=== PATIENT | male | born 1940 | race Caucasian/White ===

== ENCOUNTER 2020-04-28 12:04 | Outpatient (REF) | payer MEDICARE, OTHER, SELFPAY ==
--- NOTE | 2020-04-28 12:38 | XR_ITS ---
EXAMINATION: XR CHEST CLINICAL INFORMATION: COPD COMPARISON: Previous chest x-ray most recent December 03 TECHNIQUE: 2 views of the chest were obtained. FINDINGS: The cardiac and mediastinal contours are stable. The lungs are well-inflated. There is increased retrosternal airspace, flattening of the diaphragms and increased AP dimension of the trachea. Findings are compatible with COPD. The lungs are clear. There is no pleural effusion or pneumothorax. There old bilateral rib fractures. There are degenerative changes of the spine. XR/XR chest 2V IMPRESSION: COPD. No evidence for acute disease in the chest.
[2020-04-28 12:52] LABS: MANUAL DIFF FLAG NO
[2020-04-28 13:03] LABS: Basophils Percent Auto 0.6 % (0-2); Eosinophils Absolute Auto 0.1 X10*3/uL (0.0-0.4); Eosinophils Percent Auto 2.2 % (0-4); Hematocrit 38.1 % (42-52); Hemoglobin 12.3 g/dl (14.0-18.0); Imm Gran Abs Auto 0.02 X10*3/uL (0.00-0.03); Imm Gran Pct Auto 0.4 % (0.0-0.4); Immature Retic Fraction 14.3 % (2.3-13.4); Lymphocytes Absolute Auto 1.3 X10*3/uL (1.2-4.9); Lymphocytes Percent Auto 23.4 % (20-40); Mean Corpuscular HGB Conc 32.3 g/dl (31.0-36.0); Mean Corpuscular Hemoglobin 32.9 pg (27.0-33.0); Mean Corpuscular Volume 101.9 fL (80-98); Mean Platelet Volume 10.4 fL (9.4-12.4); Monocytes Absolute Auto 0.5 X10*3/uL (0.1-1.2); Monocytes Percent Auto 8.4 % (2-11); Neutrophils Absolute Auto 3.5 X10*3/uL (2.0-8.3); Platelet Count 268 X10*3/uL (160-400); Red Blood Count 3.74 X10*6/uL (4.60-5.80); Retic HGB Equivalent 33.4 pg (30.0-35.0); Reticulocyte Percent 2.3 % (0.5-1.8); Reticulocytes Absolute 0.086 X10*6/uL (0.026-0.095); White Blood Count 5.4 X10*3/uL (4.8-10.8)
[2020-04-28 13:09] LABS: Alanine Aminotransferase 17 U/L (0-40); Albumin Level 3.8 g/dL (3.5-5.0); Alkaline Phosphatase 132 U/L (39-117); Anion Gap 13 (12-20); Aspartate Amino Transferase 27 U/L (5-37); Bilirubin Total 0.2 mg/dL (0.0-1.0); Blood Urea Nitrogen 21 mg/dL (9-16); Carbon Dioxide 31 mmol/L (22-29); Chloride 100 mmol/L (96-108); Estimated Glomerular Filt Rate > 60; Glucose Random 87 mg/dL (60-115); Iron 105 mcg/dL (45-160); Percent Iron Saturation 34 % (15-50); Potassium 4.7 mmol/l (3.3-5.1); Sodium 139 mmol/L (135-145); Total Iron Binding Capacity 313 mcg/dL (228-428); Total Protein 7.2 g/dL (6.5-8.0); Unsaturated Iron Binding 208 ug/dL
[2020-04-28 13:25] LABS: Ferritin 94 ng/mL (20-250); Free T4 (Free Thyroxine) 1.03 ng/dL (0.71-1.85); Thyroid Stimulating Hormone 3.41 uIU/mL (0.32-4.0)
[2020-04-28 13:39] LABS: Folate 7.8 ng/mL (> or = 4.0); Vitamin B12 219 pg/mL (200-900)
== END 2020-04-28 12:05 | disposition home or self-care (01) ==
LOC: HO.LAB 12:04
PROVIDERS: PCP Internal Medicine; Visit Provider Internal Medicine
DX: E78.00 Pure hypercholesterolemia, unspecified (principal); J44.9 Chronic obstructive pulmonary disease, unspecified; I10 Essential (primary) hypertension; G25.0 Essential tremor; L30.9 Dermatitis, unspecified; B35.3 Tinea pedis; Z72.0 Tobacco use; Z20.822 Contact with and (suspected) exposure to COVID-19
CPT/HCPCS: 36415; 71046; 80053; 82607; 82728; 82746; 83540; 84439; 84443; 85025; 85045; U0003

== ENCOUNTER 2020-04-29 15:02 | Outpatient (REF) | payer MEDICARE, SELFPAY ==
[2020-04-29 15:19] LABS: Glucose Urine UA NEG (NEG); Leukocyte Esterase Urine NEG (NEG); Nitrite Urine NEG (NEG); Specific Gravity - Urine 1.025 (1.005-1.025); Urine Blood NEG (NEG); Urine Ketones NEG (NEG); Urine Protein 1+ MG/DL (NEG-TRACE)
[2020-04-29 15:23] LABS: Appearance Urine HAZY; Color Urine DARK YELLOW
[2020-04-29 16:37] LABS: Bacteria Urine 3+ /LPF; Granular Casts Urine 0-2 /LPF; RBC Urine 0-2 /HPF (0); WBC Urine 0 /HPF (0-4)
[2020-04-29 16:38] LABS: Hyaline Casts Urine 0-2 /LPF
== END 2020-04-29 15:03 | disposition home or self-care (01) ==
LOC: HO.LNP 15:02
PROVIDERS: Visit Provider Internal Medicine
DX: I10 Essential (primary) hypertension (principal)
CPT/HCPCS: 81001

== ENCOUNTER 2020-05-27 16:15 | Emergency (ER) | payer MEDICARE, SELFPAY ==
--- NOTE | ~2020-05-27 | CT_ITS ---
EXAMINATION: CT OF THE HEAD AND CERVICAL SPINE WITHOUT CONTRAST CLINICAL INFORMATION: Fall COMPARISON: 12/29/2017 TECHNIQUE: Contiguous axial imaging was performed from the vertex to the thoracic inlet, through the head and cervical spine, without intravenous administration of contrast. Coronal and sagittal reformatted images through the cervical spine were obtained on the technologists workstation. Total exam dose-length product: 350+794 mGy-cm This CT examination was performed using dose optimization techniques as appropriate, variously including the following: *Automated exposure control *Adjustment of mA and/or kV according to patient size (this includes techniques or standardized protocols for targeted exams where dose is matched to indication/reason for exam; i.e. extremities or head) *Use of iterative reconstruction technique FINDINGS: Head: No acute intracranial hemorrhage. No extra-axial fluid collection. Hernandez-white matter differentiation is preserved without evidence of acute large vessel territory ischemia. Again seen are prominent extra-axial CSF spaces, right greater than left. There may be a chronic right-sided low density hygroma. No local mass effect or sulcal effacement. The ventricular system is similar in appearance to the prior study. No mass effect or midline shift. Again seen is patchy periventricular and subcortical white matter hypodensity consistent with chronic microvascular white matter ischemic changes. No skull fracture seen. There is new soft tissue thickening of the forehead, right greater than left extending to the right periorbital soft tissues. Right ethmoid sinus mucosal thickening. There is diffuse opacification of the left mastoid air cells with erosion of the cortex anteriorly consistent with mastoiditis. There is abnormal soft tissue in the left middle ear. Cervical spine: Exaggerated cervical lordosis. Grade 1 anterolisthesis of C4 on C5. Multilevel degenerative disc disease. No acute or suspicious osseous abnormality. Multilevel degenerative changes. Multilevel facet arthropathy. Severe biapical pleural-parenchymal scarring and emphysema. No cervical lymphadenopathy, mass, or fluid collection. CT/CT cervical spine wo con IMPRESSION: No acute intracranial abnormality. Again seen are right greater than left prominent extra-axial CSF spaces; there may be a chronic low density subdural hygroma on the right. There is new soft tissue thickening of the forehead extending to the right periorbital soft tissues. Recommend correlation with physical exam. There is new/worsened diffuse opacification of the left mastoid air cells with erosion of the cortex anteriorly consistent with mastoiditis. Also seen is abnormal soft tissue in the left middle ear. Extensive multilevel degenerative changes of the cervical spine but no acute osseous abnormality seen.
--- NOTE | ~2020-05-27 | CT_ITS ---
EXAMINATION: CT CHEST, ABDOMEN AND PELVIS WITH CONTRAST CLINICAL INFORMATION: Fall. Abdominal and chest pain. COMPARISON: CT chest, abdomen and pelvis 01/12/2018. TECHNIQUE: Multidetector volumetric imaging was performed from the thoracic inlet through the pubic symphysis following administration of 100 mL Omnipaque 350. Sagittal and coronal reformatted images were obtained on the technologist's workstation. This CT examination was performed using dose optimization techniques as appropriate, variously including the following: *Automated exposure control. *Adjustment of mA and/or kV according to patient size (this includes techniques or standardized protocols for targeted exams where dose is matched to indication/reason for exam; i.e. extremities or head). *Use of iterative reconstruction technique. DLP: 2141 mGy-cm FINDINGS: CHEST: Lung: Severe underlying COPD is present with bullae present throughout the lungs. Calcified granulomas are present in the right upper lobe as well as in the posterior costophrenic sulcus in the left lower lobe. No suspicious lung masses seen. Mediastinum: The mediastinum is unremarkable. The central vascular structures are unremarkable aside from mild calcific plaque in the aorta and coronary artery calcifications. No hilar or mediastinal lymphadenopathy. Pericardium/Pleura: No significant effusion. No pleural mass or thickening. Chest Wall/Axilla: There is an old fracture involving the 11th rib on the right with non-union. The fracture appeared to be acute on 01/12/2018. ABDOMEN/PELVIS: Peritoneal Space: No significant free air or free fluid identified. Liver, Gallbladder, Biliary Tree: The liver is normal in size, shape, and attenuation. No focal hepatic lesion or biliary ductal dilatation is present. The gallbladder is unremarkable with no evidence of radiopaque gallstones, gallbladder wall thickening, or obvious pericholecystic inflammatory changes. Pancreas: Calcifications are present in the pancreas suggesting chronic pancreatitis, unchanged. Spleen: Unremarkable. Adrenal Glands: Unremarkable. Kidneys and Ureters: The kidneys are normal in size, shape, and attenuation. Bilateral renal cysts are again noted. No hydronephrosis, hydroureter, or calculi seen. No perinephric stranding. Bladder: Unremarkable. Gastrointestinal Tract: A large amount of stool is present throughout the colon but there is no evidence of bowel obstruction. There is some minimally prominent small bowel loops in the pelvis with a maximum diameter of 2.5 cm. Few scattered colonic diverticula are seen. The small and large bowel are otherwise unremarkable. The appendix is not identified but there is no evidence to suggest appendicitis. Abdominal Wall: No significant hernia is appreciated. Lymph Nodes: No retroperitoneal lymphadenopathy is seen. Vascular: There has been a dramatic increase in size of infrarenal abdominal aortic aneurysm that previously measured 3.7 x 3.0 cm and now measures 6.0 x 6.1 cm (series 27 image 35). The aneurysm contains considerable thrombus. The aneurysm ends at the aortic bifurcation but there is associated aneurysmal dilatation of the left common iliac artery with maximal dimension of 2.7 cm, previously 2.2 cm. Severe calcific atherosclerotic changes present in the iliofemoral vessels. The IVC appears unremarkable. PELVIC VISCERA: Patient appears to be status post TURP. OSSEUS STRUCTURES: Moderate degenerative changes are noted in the spine. No bony destructive lesions are seen. CT/CT abdomen pelvis w con IMPRESSION: 1. Dramatic increase in size of AAA now measuring 6 cm. There is marked associated atherosclerotic disease involving the iliofemoral vessels which could impact access for stent graft. 2. Incidental note made of: a. Underlying emphysema. b. Marked coronary calcifications. c. Old chronic right rib fracture with no acute fracture seen. d. Calcifications in pancreas consistent with chronic pancreatitis. e. Benign renal cysts.
[2020-05-27 16:22] VITALS: BP 177/96; BP 190/110; PULSE 71; PULSE 76; RESP 15; TEMP 36.5; O2SAT 97; O2SAT 98; BMI 17.6
--- NOTE | 2020-05-27 16:28 | ECG_ITS ---
Test Reason : FALL Blood Pressure : / mmHG Vent. Rate : 063 BPM Atrial Rate : 063 BPM P-R Int : 144 ms QRS Dur : 090 ms QT Int : 448 ms P-R-T Axes : 080 090 070 degrees QTc Int : 458 ms Normal sinus rhythm Rightward axis Septal infarct , age undetermined Abnormal ECG When compared with ECG of 22-MAR-2019 20:33, QRS axis Shifted right Nonspecific T wave abnormality no longer evident in Inferior leads Referred By: Rey Singleton Electronically Signed By:JUAN ENAMORADO MD
--- NOTE | 2020-05-27 16:42 | ED_ITS ---
HPI - Fall General Chief Complaint: Fall Stated Complaint: FALL YESTERDAY,STOMACH PAIN/NAUSEA Time Seen by Provider: 05/27/20 16:28 Source: patient Mode of arrival: ambulatory Limitations: no limitations History of Present Illness HPI Narrative: Patient presents to the ED for for abdominal pain, nausea, and emesis after falling since yesterday. patient states yesterday his legs gave out and fell unto his back and now has abdominal pain. Patient denies any dysuria, hematuria, fever, or chills. Related Data Home Medications Medication Instructions Recorded Confirmed albuterol sulfate 90 mcg/actuation 2 puff INHALATION Q4-6H PRN 03/09/20 04/30/20 aerosol inhaler amlodipine 10 mg tablet 10 mg PO DAILY 03/09/20 04/30/20 primidone 250 mg tablet 250 mg PO TID 03/09/20 04/30/20 propranolol 80 mg capsule,24 80 mg PO BID cap 03/09/20 04/30/20 hr,extended release Previous Rx's Medication Instructions Recorded budesonide-formoterol HFA 80 2 puff INHALATION BID #10.2 g 02/24/20 mcg-4.5 mcg/actuation aerosol inhaler polymyxin B sulfate 10,000 1 drp OPHTHALMIC-RIGHT Q3H 7 Days 04/30/20 unit-trimethoprim 1 mg/mL eye drops #10 ml atorvastatin 20 mg tablet 20 mg PO DAILY #90 tab 05/19/20 Allergies Allergy/AdvReac Type Severity Reaction Status Date / Time tiotropium AdvReac Unknown rash Verified 03/04/20 13:08 [Spiriva with HandiHaler] nuts Allergy Unknown Unknown Uncoded 03/04/20 13:08 peanut butter Allergy Unknown Unknown Uncoded 03/04/20 13:08 Review of Systems Review of Systems: Yes all other systems are reviewed and are negative Constitutional: Constitutional: Reports as per HPI and Reports no additional constitutional complaints Eyes: Eyes: Reports as per HPI and Reports no additional eye complaints ENT: Reports system reviewed and no additional complaints, except as documented and Reports as per HPI Cardiovascular: Cardiovascular: Reports as per HPI and Reports no additional cardiovascular complaints Respiratory: Respiratory: Reports as per HPI and Reports no additional respiratory complaints Gastrointestinal: Gastrointestinal: Reports as per HPI, Reports no additional gastrointestinal complaints and Reports abdominal pain Genitourinary: Genitourinary: Reports no additional male genitourinary complaints and Reports as per HPI Musculoskeletal: Musculoskeletal: Reports no additional musculoskeletal complaints and Reports as per HPI Neurologic: Reports system reviewed and no additional complaints, except as documented and Reports as per HPI Psychiatric: Psychiatric: Reports no additional psychiatric complaints and Reports as per HPI [facility] Past Medical History Medical History Abdominal aortic aneurysm Benign essential tremor COPD (chronic obstructive pulmonary disease) Foot osteomyelitis, right Hypercholesterolemia Hypertension Macrocytosis without anemia Osteoarthritis Pulmonary nodule Shoulder and upper arm avulsions TIA (transient ischemic attack) Tobacco abuse Vitamin B 12 deficiency Vitamin D deficiency Surgical History History of bladder surgery History of inguinal hernia repair History of removal of cyst Family History Family History (Updated 03/04/20 @ 13:10 by Kimberli Christopher Dottie) Father Medical history unknown Mother Hypertension Stroke Social History Social History (Updated 03/09/20 @ 16:21 by Kendall Gonzalez MD) Alcohol intake: never Smoking Status: Current every day smoker Years Smoked: smoking 3 a day (02/2020) Use of substances other than those prescribed or required for medical reasons: No Advance Directives: No Advance Directives Information Provided: Yes Physical Exam Vital Signs: Vital Signs: Last Vital Signs Temp 97.7 F 05/27/20 16:22 Pulse 65 05/27/20 17:40 Resp 15 05/27/20 17:40 BP 141/74 H 05/27/20 17:40 Pulse Ox 95 05/27/20 17:40 Body Mass Index 17.6 Const: General: cooperative, healthy appearing, comfortable, no acute distress, well developed, alert, awake and Physically active Orientation/consciousness: patient oriented x3 HENMT: Head: Yes normal to inspection, Yes No palpable skull fracture present, Yes normocephalic, Yes atraumatic and No abrasion Eyes: General: appearance normal, both eyes and all related structures Neck: Neck: Yes normal visual inspection, Yes full ROM, Yes no lymphadenopathy, Yes no meningeal signs, Yes trachea midline, Yes supple and No tender Chest: Chest palpation & inspection: normal inspection of the chest and normal palpation of entire chest wall Resp: Effort & Inspection: normal respiratory effort and able to speak in complete sentences Auscultation: clear to auscultation bilaterally Cardio: Jugular venous distension: no JVD Heart sounds: S1 normal heart sound present and S2 normal heart sound present GI: Inspection: Yes normal to inspection and No abdominal wall ecchymosis Palpation (GI): Soft to palpation, not firm, Tenderness to palpation present (GI) (diffuse tendernes), no guarding and not rigid : General: No CVA tenderness and Yes no CVA tenderness Back/Spine/Pelvis: Back: no CVA tenderness, No CVA tenderness and No back tenderness Skin: General skin exam: no rashes or lesions noted and elasticity normal Neuro: General: patient oriented x3, no meningeal signs and CN's II-XI intact bilaterally Cranial nerves: Yes CN's II-XII intact bilaterally Extrem: Other: patient has compelte range of motion of all extremities and negative for ecchymosis, abrasions, tenderness,. General: Yes normal to inspection and Yes full ROM Psych: Appearance: grossly normal, well kempt and not disheveled Course Course Course Narrative: initial fast best side ultrasoud normal, but to pain to fall and unproportional pain of abdomen patient will pet scan including abdomen. EkT and troponin ordered due to age. morphine ordered Reevaluation(s) Reevaluation #1: EKG negative for stemi. Imaging still pending. TRoponin 13. Rest of labs is stable Case signed out to ANGELINE Oconnor Time: 18:06 [facility] - Fall [facility] Narrative Medical decision making narrative: Fall Lab Data Result diagrams: 05/27/20 17:17 05/27/20 17:17 Labs: Lab Results 05/27/20 05/27/20 05/27/20 Range/Units 17:17 17:17 17:17 WBC 5.5 (4.8-10.8) X10*3/uL RBC 3.62 L (4.60-5.80) X10*6/uL Hgb 12.1 L (14.0-18.0) g/dl Hct 36.9 L (42-52) % MCV 101.9 H (80-98) fL MCH 33.4 H (27.0-33.0) pg MCHC 32.8 (31.0-36.0) g/dl RDW 15.9 (11.0-16.0) % Plt Count 288 (160-400) X10*3/uL MPV 10.3 (9.4-12.4) fL Immature Gran % (Auto) 0.4 (0.0-0.4) % Neut % (Auto) 64.7 (45-73) % Lymph % (Auto) 27.1 (20-40) % [place] % (Auto) 6.0 (2-11) % Eos % (Auto) 1.3 (0-4) % Baso % (Auto) 0.5 (0-2) % Lymph # (Auto) 1.5 (1.2-4.9) X10*3/uL [place] # (Auto) 0.3 (0.1-1.2) X10*3/uL Eos # (Auto) 0.1 (0.0-0.4) X10*3/uL Baso # (Auto) 0.0 (0.0-0.2) X10*3/uL Abs Immat Gran (auto) 0.02 (0.00-0.03) X10*3/uL Absolute Neuts (auto) 3.6 (2.0-8.3) X10*3/uL Absolute Nucleated RBC 0.000 (0.0-0.012) X10*3/uL Nucleated RBC % (auto) 0.0 (0.0-0.2) /100WBC PT 13.7 H (10.8-13.0) SEC INR 1.2 H (0.9-1.1) APTT 35.0 (24.1-38.0) SEC Sodium 138 (135-145) mmol/L Potassium 5.0 (3.3-5.1) mmol/L Chloride 99 (96-108) mmol/L Carbon Dioxide 28 (22-29) mmol/L Anion Gap 16 (12-20) BUN 22 H (9-16) mg/dL Creatinine 0.85 (0.5-1.4) mg/dL Estim Creat Clear Calc 53.8 Estimated GFR > 60 Random Glucose 93 (60-115) mg/dL Calcium 9.1 (8.4-10.2) mg/dL Total Bilirubin 0.3 (0.0-1.0) mg/dL Direct Bilirubin < 0.2 (0.0-0.5) mg/dL AST 28 (5-37) U/L ALT 16 (0-40) U/L Alkaline Phosphatase 130 H (39-117) U/L Troponin I High Sens (<3.5-35.0) ng/L Total Protein 7.4 (6.5-8.0) g/dL Albumin 3.6 (3.5-5.0) g/dL 05/27/20 Range/Units 17:17 WBC (4.8-10.8) X10*3/uL RBC (4.60-5.80) X10*6/uL Hgb (14.0-18.0) g/dl Hct (42-52) % MCV (80-98) fL MCH (27.0-33.0) pg MCHC (31.0-36.0) g/dl RDW (11.0-16.0) % Plt Count (160-400) X10*3/uL MPV (9.4-12.4) fL Immature Gran % (Auto) (0.0-0.4) % Neut % (Auto) (45-73) % Lymph % (Auto) (20-40) % [place] % (Auto) (2-11) % Eos % (Auto) (0-4) % Baso % (Auto) (0-2) % Lymph # (Auto) (1.2-4.9) X10*3/uL [place] # (Auto) (0.1-1.2) X10*3/uL Eos # (Auto) (0.0-0.4) X10*3/uL Baso # (Auto) (0.0-0.2) X10*3/uL Abs Immat Gran (auto) (0.00-0.03) X10*3/uL Absolute Neuts (auto) (2.0-8.3) X10*3/uL Absolute Nucleated RBC (0.0-0.012) X10*3/uL Nucleated RBC % (auto) (0.0-0.2) /100WBC PT (10.8-13.0) SEC INR (0.9-1.1) APTT (24.1-38.0) SEC Sodium (135-145) mmol/L Potassium (3.3-5.1) mmol/L Chloride (96-108) mmol/L Carbon Dioxide (22-29) mmol/L Anion Gap (12-20) BUN (9-16) mg/dL Creatinine (0.5-1.4) mg/dL Estim Creat Clear Calc Estimated GFR Random Glucose (60-115) mg/dL Calcium (8.4-10.2) mg/dL Total Bilirubin (0.0-1.0) mg/dL Direct Bilirubin (0.0-0.5) mg/dL AST (5-37) U/L ALT (0-40) U/L Alkaline Phosphatase (39-117) U/L Troponin I High Sens 13.0 (<3.5-35.0) ng/L Total Protein (6.5-8.0) g/dL Albumin (3.5-5.0) g/dL Discharge Plan Discharge Prescriptions: No [facility] budesonide-formoterol [Symbicort] 80-4.5 mcg/actuation HFA aerosol inhaler 2 puff inhalation BID Qty: 10.2 RF: 5 atorvastatin 20 mg tablet 20 mg PO DAILY Qty: 90 RF: 2 propranolol 80 mg capsule,extended release 24 hr 80 mg PO BID RF: 0 primidone 250 mg tablet 250 mg PO TID RF: 0 albuterol sulfate [ProAir HFA] 90 mcg/actuation HFA aerosol inhaler 2 puff inhalation Q4-6H PRNRF: 0 amlodipine 10 mg tablet 10 mg PO DAILY RF: 0 polymyxin B sulf-trimethoprim [Polytrim] 10,000 unit- 1 mg/mL drops 1 drp ophthalmic-Right Q3H 7 Days Qty: 10 RF: 0
[2020-05-27] MEDS: Morphine Sulfate 4 MG/ML CARTRIDGE IVPUSH (16:51)
[2020-05-27 16:58] VITALS: BP 166/89; PULSE 68; RESP 15; O2SAT 97
[2020-05-27 17:24] LABS: MANUAL DIFF FLAG NO
[2020-05-27 17:28] LABS: Basophils Percent Auto 0.5 % (0-2); Eosinophils Absolute Auto 0.1 X10*3/uL (0.0-0.4); Eosinophils Percent Auto 1.3 % (0-4); Hematocrit 36.9 % (42-52); Hemoglobin 12.1 g/dl (14.0-18.0); Imm Gran Abs Auto 0.02 X10*3/uL (0.00-0.03); Imm Gran Pct Auto 0.4 % (0.0-0.4); Lymphocytes Absolute Auto 1.5 X10*3/uL (1.2-4.9); Lymphocytes Percent Auto 27.1 % (20-40); Mean Corpuscular HGB Conc 32.8 g/dl (31.0-36.0); Mean Corpuscular Hemoglobin 33.4 pg (27.0-33.0); Mean Corpuscular Volume 101.9 fL (80-98); Mean Platelet Volume 10.3 fL (9.4-12.4); Monocytes Absolute Auto 0.3 X10*3/uL (0.1-1.2); Neutrophils Absolute Auto 3.6 X10*3/uL (2.0-8.3); Neutrophils Percent Auto 64.7 % (45-73); Platelet Count 288 X10*3/uL (160-400); Red Blood Count 3.62 X10*6/uL (4.60-5.80); Red Cell Distribution Width 15.9 % (11.0-16.0); White Blood Count 5.5 X10*3/uL (4.8-10.8)
[2020-05-27 17:38] LABS: INTERNATIONAL NORM RATIO 1.2 (0.9-1.1); Prothrombin Time 13.7 SEC (10.8-13.0)
[2020-05-27 17:40] VITALS: BP 141/74; PULSE 65; RESP 15; O2SAT 95
[2020-05-27] MEDS: iohexoL 350 MG/ML 100 ML INFUS..BTL IV (17:41)
[2020-05-27 17:55] LABS: Alanine Aminotransferase 16 U/L (0-40); Albumin Level 3.6 g/dL (3.5-5.0); Alkaline Phosphatase 130 U/L (39-117); Anion Gap 16 (12-20); Aspartate Amino Transferase 28 U/L (5-37); Bilirubin Direct < 0.2 mg/dL (0.0-0.5); Bilirubin Total 0.3 mg/dL (0.0-1.0); Blood Urea Nitrogen 22 mg/dL (9-16); Calcium 9.1 mg/dL (8.4-10.2); Carbon Dioxide 28 mmol/L (22-29); Chloride 99 mmol/L (96-108); Creatinine Clr Calc Pharmacy 53.8; Estimated Glomerular Filt Rate > 60; Glucose Random 93 mg/dL (60-115); Sodium 138 mmol/L (135-145); Total Protein 7.4 g/dL (6.5-8.0)
[2020-05-27 18:00] VITALS: BP 137/70; PULSE 63; RESP 15; TEMP 36.6; O2SAT 95
[2020-05-27 19:56] VITALS: BP 137/79; PULSE 63; RESP 12; TEMP 36.6; O2SAT 96
[2020-05-27 20:57] LABS: Hematocrit 34.3 % (42-52); Hemoglobin 11.4 g/dl (14.0-18.0)
[2020-05-27 21:25] LABS: MANUAL DIFF FLAG NO
[2020-05-27 21:26] LABS: Troponin-I High Sensitivity 12.6 ng/L (<3.5-35.0)
[2020-05-27 21:27] LABS: Basophils Percent Auto 0.5 % (0-2); Eosinophils Absolute Auto 0.1 X10*3/uL (0.0-0.4); Eosinophils Percent Auto 1.2 % (0-4); Hematocrit 34.1 % (42-52); Hemoglobin 11.3 g/dl (14.0-18.0); Imm Gran Abs Auto 0.02 X10*3/uL (0.00-0.03); Imm Gran Pct Auto 0.3 % (0.0-0.4); Lymphocytes Absolute Auto 1.8 X10*3/uL (1.2-4.9); Lymphocytes Percent Auto 30.9 % (20-40); Mean Corpuscular HGB Conc 33.1 g/dl (31.0-36.0); Mean Corpuscular Hemoglobin 33.7 pg (27.0-33.0); Mean Corpuscular Volume 101.8 fL (80-98); Mean Platelet Volume 10.5 fL (9.4-12.4); Monocytes Absolute Auto 0.4 X10*3/uL (0.1-1.2); Monocytes Percent Auto 7.2 % (2-11); Neutrophils Absolute Auto 3.5 X10*3/uL (2.0-8.3); Neutrophils Percent Auto 59.9 % (45-73); Platelet Count 275 X10*3/uL (160-400); Red Blood Count 3.35 X10*6/uL (4.60-5.80); Red Cell Distribution Width 15.9 % (11.0-16.0); White Blood Count 5.9 X10*3/uL (4.8-10.8)
[2020-05-27 21:57] VITALS: BP 159/88; PULSE 65; RESP 12; TEMP 36.6; O2SAT 94
[2020-05-27] MEDS: polyethylene glycoL 3350 17 GM POWD.PACK PO (22:19)
[2020-05-27] MEDS: Docusate Sodium 100 MG CAPSULE PO (22:19)
[2020-05-27] MEDS: bisacodyL 10 MG SUPP.RECT PR (22:19)
--- NOTE | 2020-05-27 22:19 | PC.NURSE ---
Patient complaining of abdominal pain. Patient needs to defacate. Patient medicated per emar
--- NOTE | 2020-05-27 22:24 | MHC.CM.ED ---
CM attempted to meet with pt at 2230, but pt was sleeping and quiet. Had been moaning off and on this shift. Will allow to rest. Per EMR, pt fell yesterday and is c/o abd pain. Constipation. Meds ordered. PT consult for am. ANGELINE Oconnor suggesting acute rehab. HCP/daughter, Flory Lu ([phone]) CM to complete assessment in am.
[2020-05-28] VITALS (8 sets, daily range): BP systolic 141–220; BP diastolic 81–112; PULSE 74–89; RESP 14–18; TEMP 36.7–37.1; O2SAT 94–97
[2020-05-28 02:25] LABS: COVID-19 Test Negative (Negative)
[2020-05-28 03:37] LABS: Glucose Urine UA NEG (NEG); Leukocyte Esterase Urine NEG (NEG); Nitrite Urine NEG (NEG); Specific Gravity - Urine 1.015 (1.005-1.025); Urine Blood NEG (NEG); Urine Ketones NEG (NEG); Urine Protein TRACE MG/DL (NEG-TRACE)
[2020-05-28 03:39] LABS: Appearance Urine CLEAR; Color Urine YELLOW
--- NOTE | 2020-05-28 06:23 | PC.NURSE ---
Patient's had good results from prior medication during the evening. He had 2 decent size bowel movements and reported some relief in his abdominal pain. Patient also noted to have a large external hemorrhoid. Patient's blood pressure was elevated in the 190's systolic. Per MD medicated early with amlodipine due to elevated blood pressure
[2020-05-28] MEDS: Atorvastatin Calcium 20 MG TABLET PO (08:21)
[2020-05-28] MEDS: Propranolol HCL LA 80 MG CAP.SA.24H PO (08:21)
[2020-05-28] MEDS: Primidone 50 MG TABLET 250 MG PO (08:22)
--- NOTE | 2020-05-28 08:30 | MHC.CM.PN ---
EMR REVIEWED, PT IN ED S/P FALL, STOMACH PAIN AND NAUSEA, CM MET WITH PT WHO REPORTS HE HADN'T SLEPT FOR 3 NIGHTS AND PT REPORTS HE WAS GETTING UP FROM THE COUCH WHEN HE FEEL, PT REPORTS HE LIVES ALONE AND HAS A CLEANING LADY WEEKLY ON THURSDAYS AND HAS MEALS ON WHEELS, PT DENIES ANY OTHER HOME SERVICES, PT REPORTS HE HAS A CANE AND TWO WALKERS AT HOME, ONE AT LEAST WITH WHEELS, PT REPORTS HE JUST STARTED USING HIS WALKER RECENTLY. PT ALSO REPORTS HE USES A SYMBACORT INHALER FOR HIS COPD AND DENIES HAVING A NEBULIZER OR ANY OTHER DME. PT VERIFIED HIS DAUGHTER CHRISTINA IS HIS HCP, PT VERIFIES PCP DR KAREN CASTRO AND PHARMACY [facility]. WHEN DISCUSSING PLACEMENT WITH PT HE REPORTS PT HAS NO PREFERENCE HOWEVER WANTS TO STAY CLOSE TO HOME POSSIBLE, PT PREFERS [facility] FOR HOME SERVICES. DISCHARGE PLAN ACUTE REHAB/STR VS HOME W/[facility] AND HOME OT/PT PCP: KAREN CASTRO HCP: CHRISTINA CALLEJAS [phone]
--- NOTE | 2020-05-28 08:46 | PC.NURSE ---
pt had elevated blood pressure, gave scheduled meds per md
--- NOTE | 2020-05-28 09:09 | PC.NURSE ---
9am scheduled amlodipine was given by previous shift, current bp 141/81
--- NOTE | 2020-05-28 09:12 | MHC.CM.PN ---
REFERRALS SENT TO [facility] AND [facility], [facility] PER PT REQUEST.
--- NOTE | 2020-05-28 09:32 | MHC.CM.PN ---
CM CALLED PT'S DAUGHTER/HCP CHRISTINA AT 9:15AM, PER SISTER PLEASE NOTIFY BOTH HER AND PT'S SON SHARON CALLEJAS IF ANYTHING HAPPENS TO PT, CM SPOKE TO BOTH CHRISTINA AND SHARON, PT'S SON REPORTS HE DOES PT'S SHOPPING AND BRINGS HIM TO ALL OF HIS APPT'S, HE ALSO REPORTS PT HAS BEEN FALLING MORE FREQUENTLY IN THE APARTMENT AND THAT DURING THE LAST SNOW STORM PT FELL OUTSIDE AND WAS ON THE GROUND IN THE SNOW WHEN SON ARRIVED TO CLEAN OFF THE SNOW FROM PT'S CAR. PT'S SON REPORTS PT IS NOT COMPLIANT WITH USING HIS WALKER AND HAD NOT USED IT WHEN HE WAS FOUND OUTSIDE IN THE SNOW. BOTH DAUGHTER AND SON ON BOARD WITH REHAB FOR PT AND HAVE NO PREFERENCE, THEY BOTH REPORT HE LIKED THE REHAB HE WAS IN BEFORE BUT DO NOT RECALL THE NAME, CM WILL SEARCH RECORD TO SEE IF IT IS IN PREVIOUS NOTES. DISCHARGE PLAN: STR VS ACUTE REHAB, BLS TRANSPORT
--- NOTE | 2020-05-28 09:36 | PC.NURSE ---
spoke with patients daughter cynithia, she was upset and concerned that she wasn't notified that her father was in the hospital, reassured daughter and apologized for lack of communication
--- NOTE | 2020-05-28 11:13 | MHC.CM.PN ---
PT ACCEPTED AT [facility] PENDING INSURANCE AUTH, CM WILL SET UP BLS TRANSPORT ONCE TIME IS DETERMINED, HCP AWARE OF PLAN AND CHOSE [facility] DUE TO PT NOT HAVING PREFERENCE.
--- NOTE | 2020-05-28 13:37 | MHC.CM.PN ---
Addendum entered by Keshia Fox RN 05/28/20 13:45: DR. TALAMANTES 06/11/20 1:30PM Original Note: CM CALLED [facility] FOR TRANSPORTATION DUE TO INSURANCE PROVIDER, [facility] UNABLE TO ACCOMODATE AND TRANSPORT BOOKED WITH [facility]. DISCHARGE PLAN: [facility] FOR STR W/ BLS TRANSPORT AT 2PM TODAY. CM WILL NOTIFY [facility] AND FAMILY KNOW OF FOLLOW-UP APPT W/ DR TALAMANTES DUE TO AAA DOUBLING IN SIZE. CM DID ATTEMPT TO CALL DR MONZON'S OFFICE FOR FOLLOW-UP FOR MASTOIDITIS HOWEVER NO ONE PICKED UP.
== END 2020-05-28 14:00 | disposition skilled nursing facility (03) ==
PROVIDERS: Physician Assistant; Emergency Provider Emergency Medicine; PCP Internal Medicine
DX: K59.00 Constipation, unspecified (principal); R10.84 Generalized abdominal pain; R53.1 Weakness; Z20.822 Contact with and (suspected) exposure to COVID-19; Z91.81 History of falling; I71.4 Abdominal aortic aneurysm, without rupture; H70.12 Chronic mastoiditis, left ear; I10 Essential (primary) hypertension; Z86.73 Personal history of transient ischemic attack (TIA), and cerebral infarction without residual deficits; F17.210 Nicotine dependence, cigarettes, uncomplicated
CPT/HCPCS: 36415; 70450; 71260; 72125; 74177; 80053; 80076; 81003; 82248; 84484; 85014; 85018; 85025; 85610; 85730; 87635; 93005; 97162; 99284; J2270; Q9967

== ENCOUNTER 2020-05-29 07:02 | Outpatient (REF) | payer MEDICARE, SELFPAY ==
[2020-05-29 07:07] LABS: MANUAL DIFF FLAG NO
[2020-05-29 08:28] LABS: Basophils Percent Auto 0.2 % (0-2); Eosinophils Absolute Auto 0.1 X10*3/uL (0.0-0.4); Eosinophils Percent Auto 1.3 % (0-4); Hematocrit 33.5 % (42-52); Imm Gran Abs Auto 0.03 X10*3/uL (0.00-0.03); Imm Gran Pct Auto 0.5 % (0.0-0.4); Lymphocytes Absolute Auto 1.9 X10*3/uL (1.2-4.9); Lymphocytes Percent Auto 31.7 % (20-40); Mean Corpuscular HGB Conc 32.8 g/dl (31.0-36.0); Mean Corpuscular Volume 100.6 fL (80-98); Mean Platelet Volume 10.8 fL (9.4-12.4); Monocytes Absolute Auto 0.6 X10*3/uL (0.1-1.2); Monocytes Percent Auto 9.4 % (2-11); Neutrophils Absolute Auto 3.5 X10*3/uL (2.0-8.3); Neutrophils Percent Auto 56.9 % (45-73); Platelet Count 267 X10*3/uL (160-400); Red Blood Count 3.33 X10*6/uL (4.60-5.80); Red Cell Distribution Width 15.8 % (11.0-16.0); White Blood Count 6.1 X10*3/uL (4.8-10.8)
[2020-05-29 08:58] LABS: Alanine Aminotransferase 13 U/L (0-40); Albumin Level 3.2 g/dL (3.5-5.0); Alkaline Phosphatase 111 U/L (39-117); Anion Gap 14 (12-20); Aspartate Amino Transferase 28 U/L (5-37); Bilirubin Total 0.2 mg/dL (0.0-1.0); Blood Urea Nitrogen 28 mg/dL (9-16); Calcium 8.4 mg/dL (8.4-10.2); Carbon Dioxide 29 mmol/L (22-29); Chloride 98 mmol/L (96-108); Estimated Glomerular Filt Rate > 60; Glucose Random 78 mg/dL (60-115); Potassium 4.3 mmol/L (3.3-5.1); Sodium 137 mmol/L (135-145); Total Protein 6.3 g/dL (6.5-8.0)
== END 2020-05-29 07:03 | disposition home or self-care (01) ==
LOC: HO.MMNH2L 07:02
PROVIDERS: Visit Provider Family Medicine
DX: I10 Essential (primary) hypertension (principal)
CPT/HCPCS: 36415; 80053; 85025

== ENCOUNTER 2020-06-01 10:28 | Outpatient (REF) | payer MEDICARE, SELFPAY ==
[2020-06-01 06:39] LABS: MANUAL DIFF FLAG NO
[2020-06-01 07:04] LABS: Basophils Percent Auto 0.3 % (0-2); Eosinophils Absolute Auto 0.1 X10*3/uL (0.0-0.4); Eosinophils Percent Auto 1.1 % (0-4); Hematocrit 30.7 % (42-52); Hemoglobin 10.2 g/dl (14.0-18.0); Imm Gran Abs Auto 0.02 X10*3/uL (0.00-0.03); Imm Gran Pct Auto 0.3 % (0.0-0.4); Lymphocytes Absolute Auto 1.8 X10*3/uL (1.2-4.9); Lymphocytes Percent Auto 27.1 % (20-40); Mean Corpuscular HGB Conc 33.2 g/dl (31.0-36.0); Mean Corpuscular Hemoglobin 33.2 pg (27.0-33.0); Mean Platelet Volume 10.5 fL (9.4-12.4); Monocytes Absolute Auto 0.5 X10*3/uL (0.1-1.2); Monocytes Percent Auto 8.1 % (2-11); Neutrophils Absolute Auto 4.2 X10*3/uL (2.0-8.3); Neutrophils Percent Auto 63.1 % (45-73); Platelet Count 226 X10*3/uL (160-400); Red Blood Count 3.07 X10*6/uL (4.60-5.80); Red Cell Distribution Width 15.5 % (11.0-16.0); White Blood Count 6.6 X10*3/uL (4.8-10.8)
[2020-06-01 07:24] LABS: Anion Gap 12 (12-20); Blood Urea Nitrogen 23 mg/dL (9-16); Calcium 7.8 mg/dL (8.4-10.2); Carbon Dioxide 27 mmol/L (22-29); Chloride 100 mmol/L (96-108); Estimated Glomerular Filt Rate > 60; Glucose Random 80 mg/dL (60-115); Potassium 3.9 mmol/L (3.3-5.1); Sodium 135 mmol/L (135-145)
== END 2020-06-01 10:29 | disposition home or self-care (01) ==
LOC: HO.MMNH2L 10:28
PROVIDERS: Visit Provider Family Medicine
DX: I10 Essential (primary) hypertension (principal)
CPT/HCPCS: 36415; 80048; 85025

== ENCOUNTER 2020-06-03 07:40 | Outpatient (REF) | payer MEDICARE, SELFPAY ==
[2020-06-03 08:20] LABS: Amylase 148 U/L (28-100); Lipase 22 U/L (8-78)
== END 2020-06-03 07:41 | disposition home or self-care (01) ==
LOC: HO.MMNH2L 07:40
PROVIDERS: Visit Provider Family Medicine
DX: E78.5 Hyperlipidemia, unspecified (principal); R56.9 Unspecified convulsions
CPT/HCPCS: 36415; 82150; 83690

== ENCOUNTER 2020-06-04 10:19 | Emergency (ER) | payer MEDICARE, SELFPAY ==
--- NOTE | ~2020-06-04 | CT_ITS ---
EXAMINATION: CT ABDOMEN AND PELVIS WITHOUT CONTRAST CLINICAL INFORMATION: Known abdominal aortic aneurysm. Abdominal pain. COMPARISON: May 27, 2020 and January 12, 2018 TECHNIQUE: Multidetector volumetric imaging was performed from the superior aspect of the liver through the pubic symphysis. Sagittal and coronal reformatted images were obtained on the technologist's workstation. This CT examination was performed using dose optimization techniques as appropriate, variously including the following: *Automated exposure control *Adjustment of mA and/or kV according to patient size (this includes techniques or standardized protocols for targeted exams where dose is matched to indication/reason for exam; i.e. extremities or head) *Use of iterative reconstruction technique DLP: 360 mGy-cm FINDINGS: Evaluation of abdominal structures is limited due to lack of oral and IV contrast as well as lack of intra- abdominal fat between structures. LUNG BASES: There are changes of centrilobular and paraseptal emphysema seen. No pleural or pericardial effusion. LIVER, GALLBLADDER, AND BILIARY TREE: The liver is normal in size, shape, and attenuation. No focal hepatic lesion or biliary ductal dilatation is present. The gallbladder is unremarkable with no evidence of radiopaque gallstones, gallbladder wall thickening, or obvious pericholecystic inflammatory changes. PANCREAS: Pancreatic calcifications are present consistent with chronic pancreatitis. SPLEEN: Unremarkable. ADRENAL GLANDS: Unremarkable. KIDNEYS AND URETERS: There are numerous cysts seen within both kidneys. No definite collecting system calculi are identified. No hydronephrosis is seen. 1 cyst within the upper pole of the right kidney appears to have small amount of calcification within its wall. BLADDER: The urinary bladder is very distended and there appears to be a prominent median lobe of the prostate with central lucency within it which may be related to previous TURP. GASTROINTESTINAL TRACT: There is a large amount of stool seen throughout the colon. No dilated loops of large or small bowel are evident. No pneumatosis intestinalis. No significant free fluid. No free gas. There appears to be some edematous streaking within the mesentery. No evidence of acute appendicitis. ABDOMINAL WALL: There is a fat-containing small left inguinal hernia seen. LYMPH NODES: No definite lymphadenopathy identified. VASCULAR: There is again noted to be a 6.0 x 5.3 cm infrarenal abdominal aortic aneurysm which appears similar in size to study of May 27, 2020 but which which is shown significant increase in size from study of January 12, 2018. The anterior wall has a bulge within it with a neck width of approximately 3 cm but with this same configuration as the most recent study. There is large amount of calcified plaque seen within the aortoiliac system. The aneurysm extends into the right common iliac artery which measures approximately 2.6 cm in diameter. PELVIC VISCERA: Very limited evaluation with multiple loops of small bowel present without intervening fat. Distended urinary bladder. OSSEOUS STRUCTURES: There is diffuse osteopenia. There are old healed bilateral rib fractures. No new suspicious destructive bony lesion is appreciated. There is partial lumbarization of the right side of S1. CT/CT abdomen pelvis wo con IMPRESSION: Distended urinary bladder. No significant change in configuration of 6.0 x 5.3 cm infrarenal abdominal aortic aneurysm which has an anterior bulge present but without definite rupture appreciated. There is limitation to the study due to lack of intra-abdominal fat and some streaking within the mesentery. 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 Bilateral renal cysts one of which in the right kidney has calcified within its wall.
[2020-06-04 10:45] VITALS: BP 170/72; BP 175/93; PULSE 68; PULSE 72; RESP 18; TEMP 36.6; O2SAT 97; O2SAT 99; BMI 16.6
--- NOTE | 2020-06-04 10:55 | ED.ABDPAIN ---
HPI - Abdominal Pain General Chief Complaint: Abdominal Pain Stated Complaint: ABD PAIN X 3 MONTHS Time Seen by Provider: 06/04/20 10:24 Source: patient, EMS, RN notes reviewed and old records reviewed Mode of arrival: EMS Limitations: no limitations History of Present Illness HPI narrative: 80 y/o male with history of COPD, anemia, HLD, HTN, PVD, known AAA, and chronic mastoiditis with recent falls and placement at SNF who presents to the ED with worsening right lower quadrant abdominal pain for the last few weeks. He states this morning he woke up and the pain was worse and he was dry heaving. He was seen in this ED 05/27 after a fall and had an extensive workup showing his known AAA has increased in size to 6cm without IV contrast extravasation. He was due to follow up with Dr. King. CT scan also showed large stool burden. He has not had a BM in 3 days. He has taken a laxative without effect. He arrives with BP 170/90. MD elicited complaint: abdominal pain Pertinent past history: other (AAA) Onset (ago): week(s) Pain Consistency: intermittent Location: RLQ Severity: moderate Quality: cramping and aching Radiation: none Migration to: no migration Exacerbating factors: nothing Relieving factors: nothing Context: recent injury and history of similar episodes Associated symptoms: nausea and vomiting (dry-heaving) Related Data Home Medications Medication Instructions Recorded Confirmed amlodipine 10 mg tablet 10 mg PO DAILY 03/09/20 05/28/20 primidone 250 mg tablet 250 mg PO TID 03/09/20 05/28/20 propranolol 80 mg capsule,24 80 mg PO BID cap 03/09/20 05/28/20 hr,extended release budesonide-formoterol [Symbicort] 2 puff PO BID 05/28/20 05/28/20 Previous Rx's Medication Instructions Recorded polymyxin B sulfate 10,000 1 drp OPHTHALMIC-RIGHT Q3H 7 Days 04/30/20 unit-trimethoprim 1 mg/mL eye drops #10 ml atorvastatin 20 mg tablet 20 mg PO DAILY #90 tab 05/19/20 bisacodyl [Dulcolax (bisacodyl)] 10 mg AR DAILY PRN #12 ea 06/04/20 docusate sodium [Colace] 100 mg PO BID #60 cap 02/18/21 polyethylene glycol 3350 [Miralax] 17 g PO DAILY #30 ea 06/04/20 sennosides [senna] 8.6 mg PO DAILY #30 cap 06/04/20 Allergies Allergy/AdvReac Type Severity Reaction Status Date / Time tiotropium AdvReac Unknown rash Verified 03/04/20 13:08 [Spiriva with HandiHaler] nuts Allergy Unknown Unknown Uncoded 03/04/20 13:08 peanut butter Allergy Unknown Unknown Uncoded 03/04/20 13:08 Review of Systems Review of Systems Constitutional: No Fever, No Chills ENT/Mouth: No sore throat, No Rhinorrhea, No Swallowing Difficulty Eyes: No Eye Pain, No Swelling, No Redness Cardiovascular: No Chest Pain, No SOB, No Orthopnea, No Edema Respiratory: No Cough, No Sputum, No Wheezing, No dyspnea Gastrointestinal: + Nausea, + Vomiting, No Diarrhea, + abdominal Pain, No Hematochezia, No Melena Genitourinary: No Dysuria, No Urinary Frequency, No Hematuria Musculoskeletal: No joint pain, No Myalgias Skin: No Skin Lesions, No rash Neuro: No Weakness, No Numbness, No Dizziness, No Headache Psych: No Anxiety/Panic, No Depression Heme/Lymph: No Bruising, No Lymphadenopathy Endocrine: No Polyuria, No Polydipsia Physical Exam Vital Signs: Vital Signs: Last Vital Signs Temp 97.9 F 06/04/20 10:45 Pulse 57 06/04/20 14:02 Resp 16 06/04/20 14:02 BP 160/77 H 06/04/20 14:02 Pulse Ox 96 06/04/20 14:02 Body Mass Index 16.6 Appearance: Alert. Oriented X3. No acute distress. Eyes: Pupils equal, round and reactive to light. ENT: Pharynx normal. Neck: Normal inspection. Neck supple. CVS: Normal heart rate and rhythm. Pulses normal. Respiratory: No respiratory distress. Breath sounds normal. Abdomen: Slightly distended, soft with RLQ tenderness & guarding. decreased BS. No palpable pulsatile mass Skin: Skin warm and dry. Normal skin color. Normal skin turgor. No rashes. Extremities: No lower extremity edema. Neuro: Oriented X 3. No motor deficit. No sensory deficit. Course Course Course Narrative: 80 y/o male with known AAA, HTN, HLD & recent fall presents with abdominal pain ongoing for the last several weeks to months. Recent CT scan showed enlarging 6cm AAA without contrast extrav. He had large stool burden. Upon d/c he reports continued constipation and not being able to get much out. Today with dry heaving and RLQ pain. Concern for obstruction, enlarging AAA, appendicitis. Doubt rupture, he is hypertensive. He has equal femoral pulses. Will get labs and repeat CT scan. Refusing FABIANA at this time. Will not get changed over into a clifford. Reevaluation(s) Reevaluation #1: Patient is refusing IV placement. He is agreeable to CT scan but does not want an IV or contrast. It was explained by myself and the heating repair technician the importance of IV dye in assessing his AAA and for possible appenditis. He is clear he does not want and IV and understands the risks. He states his abdominal discomfort is significantly improved after the laxatives were given. He has not had a BM yet. Reevaluation #2: CT scan showing stable AAA. Large stool burden without evidence of obstruction. This is likely the cause of his acute on chronic pain. He is refusing a rectal examination still. UA pending. Reevaluation #3: Patient continues to feel improved. Now drinking coffee and asking for dinner. UA is negative. He is stable for discharge with a bowel regimen. MDM - Abdominal Pain Lab Data Result diagrams: 06/04/20 11:40 06/04/20 11:40 Labs: Lab Results 06/04/20 06/04/20 06/04/20 Range/Units 11:40 11:40 11:40 WBC 7.3 (4.8-10.8) X10*3/uL RBC 3.31 L (4.60-5.80) X10*6/uL Hgb 11.1 L (14.0-18.0) g/dl Hct 32.9 L (42-52) % MCV 99.4 H (80-98) fL MCH 33.5 H (27.0-33.0) pg MCHC 33.7 (31.0-36.0) g/dl RDW 15.2 (11.0-16.0) % Plt Count 221 (160-400) X10*3/uL MPV 9.8 (9.4-12.4) fL Immature Gran % (Auto) 0.3 (0.0-0.4) % Neut % (Auto) 70.8 (45-73) % Lymph % (Auto) 20.7 (20-40) % Thomas % (Auto) 7.8 (2-11) % Eos % (Auto) 0.1 (0-4) % Baso % (Auto) 0.3 (0-2) % Lymph # (Auto) 1.5 (1.2-4.9) X10*3/uL Thomas # (Auto) 0.6 (0.1-1.2) X10*3/uL Eos # (Auto) 0.0 (0.0-0.4) X10*3/uL Baso # (Auto) 0.0 (0.0-0.2) X10*3/uL Abs Immat Gran (auto) 0.02 (0.00-0.03) X10*3/uL Absolute Neuts (auto) 5.2 (2.0-8.3) X10*3/uL Absolute Nucleated RBC 0.000 (0.0-0.012) X10*3/uL Nucleated RBC % (auto) 0.0 (0.0-0.2) /100WBC ESR 74 H (0-15) MM/HR Hold Blue Top SEE NOTE Sodium (135-145) mmol/L Potassium (3.3-5.1) mmol/L Chloride (96-108) mmol/L Carbon Dioxide (22-29) mmol/L Anion Gap (12-20) BUN (9-16) mg/dL Creatinine (0.5-1.4) mg/dL Estim Creat Clear Calc Estimated GFR Random Glucose (60-115) mg/dL Calcium (8.4-10.2) mg/dL Magnesium (1.6-2.6) mg/dL Total Bilirubin (0.0-1.0) mg/dL Direct Bilirubin (0.0-0.5) mg/dL AST (5-37) U/L ALT (0-40) U/L Alkaline Phosphatase (39-117) U/L C-Reactive Protein (< or = 0.50) mg/dL Total Protein (6.5-8.0) g/dL Albumin (3.5-5.0) g/dL Urine Color Urine Appearance Urine pH (5.0-8.0) Ur Specific Shipman (1.005-1.025) Urine Protein (NEG-TRACE) MG/DL Urine Glucose (UA) (NEG) MG/DL Urine Ketones (NEG) MG/DL Urine Blood (NEG) Urine Nitrite (NEG) Ur Leukocyte Esterase (NEG) Urine RBC (0) /HPF Urine WBC (0-4) /HPF Ur Squamous Epith Cells /LPF Urine Bacteria /LPF Granular Casts /LPF Urine Mucus /LPF 06/04/20 06/04/20 Range/Units 11:40 15:49 WBC (4.8-10.8) X10*3/uL RBC (4.60-5.80) X10*6/uL Hgb (14.0-18.0) g/dl Hct (42-52) % MCV (80-98) fL MCH (27.0-33.0) pg MCHC (31.0-36.0) g/dl RDW (11.0-16.0) % Plt Count (160-400) X10*3/uL MPV (9.4-12.4) fL Immature Gran % (Auto) (0.0-0.4) % Neut % (Auto) (45-73) % Lymph % (Auto) (20-40) % Thomas % (Auto) (2-11) % Eos % (Auto) (0-4) % Baso % (Auto) (0-2) % Lymph # (Auto) (1.2-4.9) X10*3/uL Thomas # (Auto) (0.1-1.2) X10*3/uL Eos # (Auto) (0.0-0.4) X10*3/uL Baso # (Auto) (0.0-0.2) X10*3/uL Abs Immat Gran (auto) (0.00-0.03) X10*3/uL Absolute Neuts (auto) (2.0-8.3) X10*3/uL Absolute Nucleated RBC (0.0-0.012) X10*3/uL Nucleated RBC % (auto) (0.0-0.2) /100WBC ESR (0-15) MM/HR Hold Blue Top Sodium 133 L (135-145) mmol/L Potassium 4.0 (3.3-5.1) mmol/L Chloride 99 (96-108) mmol/L Carbon Dioxide 27 (22-29) mmol/L Anion Gap 11 L (12-20) BUN 21 H (9-16) mg/dL Creatinine 0.77 (0.5-1.4) mg/dL Estim Creat Clear Calc 55.9 Estimated GFR > 60 Random Glucose 104 (60-115) mg/dL Calcium 8.0 L (8.4-10.2) mg/dL Magnesium 2.0 (1.6-2.6) mg/dL Total Bilirubin 0.3 (0.0-1.0) mg/dL Direct Bilirubin < 0.2 (0.0-0.5) mg/dL AST 23 (5-37) U/L ALT 14 (0-40) U/L Alkaline Phosphatase 111 (39-117) U/L C-Reactive Protein 3.70 H (< or = 0.50) mg/dL Total Protein 6.0 L (6.5-8.0) g/dL Albumin 3.2 L (3.5-5.0) g/dL Urine Color YELLOW Urine Appearance CLEAR Urine pH 7.0 (5.0-8.0) Ur Specific [place]man 1.020 (1.005-1.025) Urine Protein 1+ H (NEG-TRACE) MG/DL Urine Glucose (UA) NEG (NEG) MG/DL Urine Ketones NEG (NEG) MG/DL Urine Blood 1+ H (NEG) Urine Nitrite NEG (NEG) Ur Leukocyte Esterase NEG (NEG) Urine RBC 0-2 (0) /HPF Urine WBC 0-2 (0-4) /HPF Ur Squamous Epith Cells TRACE /LPF Urine Bacteria TRACE /LPF Granular Casts 0-2 /LPF Urine Mucus TRACE /LPF Critical Care Time Critical Care Time Critical Care Time: No Discharge Plan Discharge Clinical Impression: Constipation Qualifiers: Constipation type: unspecified constipation type Qualified Code(s): K59.00 - Constipation, unspecified Patient Disposition: er [facility] Instructions: Constipation (ED) Additional Instructions: Your CT scan today showed a large stool burden in your colon. This is likely the cause of your abdominal discomfort. Your known AAA (abdominal aortic aneurysm) is stable. You need to follow up with Dr. King from [facility] for this within 1 week. Recommend starting a daily bowel regimen with the below medications to help move your bowels regularly. Stay hydrated and drink plenty of water. Increase your fiber intake. Follow up with your doctor next week. If you have worsening abdominal pain or any new or concerning symptom come back to the ER for further evaluation. Prescriptions: New polyethylene glycol 3350 [Miralax] 17 gram powder in packet 17 g PO DAILY Qty: 30 RF: 0 docusate sodium [Colace] 100 mg capsule 100 mg PO BID Qty: 60 RF: 0 senna 8.6 mg capsule 8.6 mg PO DAILY Qty: 30 RF: 0 bisacodyl [Dulcolax (bisacodyl)] 10 mg suppository 10 mg AR DAILY PRN (Reason: constipation) Qty: 12 RF: 0 No Action atorvastatin 20 mg tablet 20 mg PO DAILY Qty: 90 RF: 2 budesonide-formoterol [Symbicort] 80-4.5 mcg/actuation HFA aerosol inhaler 2 puff PO BID RF: 0 propranolol 80 mg capsule,extended release 24 hr 80 mg PO BID RF: 0 primidone 250 mg tablet 250 mg PO TID RF: 0 amlodipine 10 mg tablet 10 mg PO DAILY RF: 0 polymyxin B sulf-trimethoprim [Polytrim] 10,000 unit- 1 mg/mL drops 1 drp ophthalmic-Right Q3H 7 Days Qty: 10 RF: 0 Referrals: Boy King MD [Physician] - 1 week (AAA ) Florencio Valdez [Physician] - 1 week (constipation) [facility] Past Medical History Attestation statement: The following information was validated with the patient. Medical History Abdominal aortic aneurysm Benign essential tremor COPD (chronic obstructive pulmonary disease) Foot osteomyelitis, right Hypercholesterolemia Hypertension Macrocytosis without anemia Osteoarthritis Pulmonary nodule Shoulder and upper arm avulsions TIA (transient ischemic attack) Tobacco abuse Vitamin B 12 deficiency Vitamin D deficiency Surgical History History of bladder surgery History of inguinal hernia repair History of removal of cyst Family History Family History (Updated 03/04/20 @ 13:10 by EMILY Solis) Father Medical history unknown Mother Hypertension Stroke Social History Social History (Updated 03/09/20 @ 16:21 by Kendall Gonzalez MD) Alcohol intake: never Smoking Status: Current every day smoker Years Smoked: smoking 3 a day (02/2020) Advance Directives: No Advance Directives Information Provided: Yes
--- NOTE | 2020-06-04 11:02 | ECG_ITS ---
Test Reason : ABDOMINAL PAIN Blood Pressure : / mmHG Vent. Rate : 055 BPM Atrial Rate : 055 BPM P-R Int : 148 ms QRS Dur : 086 ms QT Int : 464 ms P-R-T Axes : 087 089 071 degrees QTc Int : 443 ms Sinus bradycardia Low voltage QRS septal infarct abnormal ecg When compared with ECG of 27-MAY-2020 17:47, No significant change was found Referred By: Anastasia Villareal Electronically Signed By:Kris Roland
[2020-06-04] MEDS: polyethylene glycoL 3350 17 GM POWD.PACK PO (11:42)
[2020-06-04] MEDS: Docusate Sodium 100 MG CAPSULE 200 MG PO (11:42)
[2020-06-04 11:47] LABS: MANUAL DIFF FLAG NO
[2020-06-04 11:49] LABS: Basophils Percent Auto 0.3 % (0-2); Eosinophils Percent Auto 0.1 % (0-4); Hematocrit 32.9 % (42-52); Hemoglobin 11.1 g/dl (14.0-18.0); Imm Gran Abs Auto 0.02 X10*3/uL (0.00-0.03); Imm Gran Pct Auto 0.3 % (0.0-0.4); Lymphocytes Absolute Auto 1.5 X10*3/uL (1.2-4.9); Lymphocytes Percent Auto 20.7 % (20-40); Mean Corpuscular HGB Conc 33.7 g/dl (31.0-36.0); Mean Corpuscular Hemoglobin 33.5 pg (27.0-33.0); Mean Corpuscular Volume 99.4 fL (80-98); Mean Platelet Volume 9.8 fL (9.4-12.4); Monocytes Absolute Auto 0.6 X10*3/uL (0.1-1.2); Monocytes Percent Auto 7.8 % (2-11); Neutrophils Absolute Auto 5.2 X10*3/uL (2.0-8.3); Neutrophils Percent Auto 70.8 % (45-73); Platelet Count 221 X10*3/uL (160-400); Red Blood Count 3.31 X10*6/uL (4.60-5.80); Red Cell Distribution Width 15.2 % (11.0-16.0); White Blood Count 7.3 X10*3/uL (4.8-10.8)
[2020-06-04 12:19] LABS: Alanine Aminotransferase 14 U/L (0-40); Albumin Level 3.2 g/dL (3.5-5.0); Alkaline Phosphatase 111 U/L (39-117); Anion Gap 11 (12-20); Aspartate Amino Transferase 23 U/L (5-37); Bilirubin Direct < 0.2 mg/dL (0.0-0.5); Bilirubin Total 0.3 mg/dL (0.0-1.0); Blood Urea Nitrogen 21 mg/dL (9-16); Carbon Dioxide 27 mmol/L (22-29); Chloride 99 mmol/L (96-108); Creatinine Clr Calc Pharmacy 55.9; Estimated Glomerular Filt Rate > 60; Glucose Random 104 mg/dL (60-115); Sodium 133 mmol/L (135-145)
[2020-06-04 13:16] LABS: Erythrocyte Sedimentation Rate 74 MM/HR (0-15)
[2020-06-04 14:02] VITALS: BP 160/77; PULSE 57; RESP 16; O2SAT 96
[2020-06-04 15:59] LABS: Glucose Urine UA NEG (NEG); Leukocyte Esterase Urine NEG (NEG); Nitrite Urine NEG (NEG); Urine Blood 1+ (NEG); Urine Ketones NEG (NEG); Urine Protein 1+ MG/DL (NEG-TRACE)
[2020-06-04 16:00] VITALS: BP 152/70; PULSE 61; RESP 14; TEMP 36.6; O2SAT 97
[2020-06-04 16:07] LABS: Appearance Urine CLEAR; Color Urine YELLOW
[2020-06-04 16:11] LABS: Bacteria Urine TRACE /LPF; Granular Casts Urine 0-2 /LPF; Mucus Urine TRACE /LPF; RBC Urine 0-2 /HPF (0); Squamous Epithelial Cell Urine TRACE /LPF; WBC Urine 0-2 /HPF (0-4)
--- NOTE | 2020-06-04 16:56 | PC.NURSE ---
Report to Vik Ball, pt in bathroom at this time attempt to move bowels
== END 2020-06-04 17:30 | disposition skilled nursing facility (03) ==
PROVIDERS: Physician Assistant; Emergency Provider Emergency Medicine
DX: K59.00 Constipation, unspecified (principal); I71.4 Abdominal aortic aneurysm, without rupture; I10 Essential (primary) hypertension; Z86.73 Personal history of transient ischemic attack (TIA), and cerebral infarction without residual deficits; F17.210 Nicotine dependence, cigarettes, uncomplicated
CPT/HCPCS: 36415; 74176; 80048; 80076; 81001; 81003; 83735; 85025; 85652; 86140; 93005; 99284

== ENCOUNTER 2020-06-08 10:41 | Outpatient (REF) | payer MEDICARE, SELFPAY ==
[2020-06-08 08:10] LABS: Basophils Percent Auto 0.3 % (0-2); Eosinophils Absolute Auto 0.1 X10*3/uL (0.0-0.4); Eosinophils Percent Auto 0.9 % (0-4); Hematocrit 33.3 % (42-52); Hemoglobin 11.2 g/dl (14.0-18.0); Imm Gran Abs Auto 0.02 X10*3/uL (0.00-0.03); Imm Gran Pct Auto 0.3 % (0.0-0.4); Lymphocytes Absolute Auto 1.7 X10*3/uL (1.2-4.9); Lymphocytes Percent Auto 24.5 % (20-40); MANUAL DIFF FLAG NO; Mean Corpuscular HGB Conc 33.6 g/dl (31.0-36.0); Mean Corpuscular Hemoglobin 32.8 pg (27.0-33.0); Mean Corpuscular Volume 97.7 fL (80-98); Mean Platelet Volume 10.4 fL (9.4-12.4); Monocytes Absolute Auto 0.5 X10*3/uL (0.1-1.2); Monocytes Percent Auto 7.1 % (2-11); Neutrophils Absolute Auto 4.5 X10*3/uL (2.0-8.3); Neutrophils Percent Auto 66.9 % (45-73); Platelet Count 217 X10*3/uL (160-400); Red Blood Count 3.41 X10*6/uL (4.60-5.80); Red Cell Distribution Width 14.6 % (11.0-16.0); White Blood Count 6.8 X10*3/uL (4.8-10.8)
[2020-06-08 08:27] LABS: Anion Gap 13 (12-20); Blood Urea Nitrogen 19 mg/dL (9-16); Calcium 8.1 mg/dL (8.4-10.2); Carbon Dioxide 28 mmol/L (22-29); Chloride 93 mmol/L (96-108); Estimated Glomerular Filt Rate > 60; Glucose Random 80 mg/dL (60-115); Potassium 4.3 mmol/L (3.3-5.1); Sodium 130 mmol/L (135-145)
== END 2020-06-08 10:42 | disposition home or self-care (01) ==
LOC: HO.MMNH2L 10:41
PROVIDERS: Visit Provider Family Medicine
DX: I10 Essential (primary) hypertension (principal)
CPT/HCPCS: 36415; 80048; 85025

== ENCOUNTER → 2020-06-09 13:13 | Outpatient (BNVA) | payer MEDICARE, SELFPAY | PROVIDERS: Visit Provider Surgery Vascular Surgery | DX: I71.4 Abdominal aortic aneurysm, without rupture (principal); I73.9 Peripheral vascular disease, unspecified | CPT/HCPCS: 99202 ==

== ENCOUNTER → 2020-06-16 13:56 | Outpatient (BNVA) | payer MEDICARE, SELFPAY | PROVIDERS: Visit Provider Internal Medicine | DX: Z01.810 Encounter for preprocedural cardiovascular examination (principal); I71.4 Abdominal aortic aneurysm, without rupture; I25.10 Atherosclerotic heart disease of native coronary artery without angina pectoris | CPT/HCPCS: 93005; 99202 ==

== ENCOUNTER 2020-06-17 09:26 | Day surgery (SDC) | payer MEDICARE, SELFPAY ==
[2020-06-17] VITALS (9 sets, daily range): BP systolic 158–185; BP diastolic 81–98; PULSE 59–71; RESP 16–18; TEMP 36.8–37.1; O2SAT 94–96; BMI 16.8
[2020-06-17 10:09] LABS: MANUAL DIFF FLAG NO
[2020-06-17 10:12] LABS: Basophils Percent Auto 0.2 % (0-2); Eosinophils Percent Auto 0.3 % (0-4); Hematocrit 36.1 % (42-52); Hemoglobin 11.9 g/dl (14.0-18.0); Imm Gran Abs Auto 0.01 X10*3/uL (0.00-0.03); Imm Gran Pct Auto 0.2 % (0.0-0.4); Lymphocytes Percent Auto 16.9 % (20-40); Mean Corpuscular Hemoglobin 32.7 pg (27.0-33.0); Mean Corpuscular Volume 99.2 fL (80-98); Mean Platelet Volume 9.3 fL (9.4-12.4); Monocytes Absolute Auto 0.4 X10*3/uL (0.1-1.2); Monocytes Percent Auto 7.3 % (2-11); Neutrophils Absolute Auto 4.6 X10*3/uL (2.0-8.3); Neutrophils Percent Auto 75.1 % (45-73); Platelet Count 276 X10*3/uL (160-400); Red Blood Count 3.64 X10*6/uL (4.60-5.80); Red Cell Distribution Width 14.6 % (11.0-16.0); White Blood Count 6.1 X10*3/uL (4.8-10.8)
[2020-06-17 10:21] LABS: INTERNATIONAL NORM RATIO 1.1 (0.9-1.1); Prothrombin Time 13.2 SEC (10.8-13.0)
[2020-06-17 10:24] LABS: Partial Thromboplastin Time 30.9 SEC (24.1-38.0)
[2020-06-17 10:51] LABS: Anion Gap 13 (12-20); Blood Urea Nitrogen 18 mg/dL (9-16); Calcium 8.5 mg/dL (8.4-10.2); Carbon Dioxide 29 mmol/L (22-29); Chloride 92 mmol/L (96-108); Creatinine Clr Calc Pharmacy 53.6; Estimated Glomerular Filt Rate > 60; Glucose Random 88 mg/dL (60-115); Sodium 130 mmol/L (135-145)
--- NOTE | 2020-06-17 12:52 | W.PM.OPN ---
Operative Note Operative Note Date of Service: 06/17/20 Narrative: Angiogram report from [facility] Preoperative diagnosis: Abdominal aortic aneurysm Postoperative diagnosis: Same Procedure: 1. Ultrasound-guided left common femoral access 2. Aortogram with iliac imaging Surgeon:Boy King M.D. Steel Floor Pan Placing Supervisor:Jessica Anesthesia: Local only Specimens:none Drains:none Estimated blood loss:minimal Indications: patient with known 6 cm a abdominal aortic aneurysm. Now presents for diagnostic angiogram and possible iliac intervention as he does have iliac stenosis. He now presents for evaluation. Risks benefits complications were discussed in detail. He demonstrated a clear understanding. Procedure in detail: Patient was brought to the angiography suite prior to which a time-out was called for patient identification and site verification. Bilateral groins were prepped and draped in the standard surgical fashion. Under ultrasound guidance Left common femoral was punctured with micro puncture needle and wire. Subsequently a precision 5 [place] sheath was then placed. Tenlegsson wire was advanced to the level of the aorta. 5 [place] Flush catheter was brought up and parked at the level of the renal arteries. Aortogram was then undertaken. Catheter was brought down to the level of the iliac bifurcation. Iliacs were subsequently imaged. multiple orthogonal views were undertaken. Catheter was removed along with sheath. dark pressure was held for 10 minutes. Interpretation of films: 1. Ultrasound demonstrates appropriate femoral puncture. Image of which was saved. 2. Aortogram demonstrates Aneurysmal caliber aorta. significant disease. Appropriate take-off of the renals. 3. Iliac images demonstrate Tortuosity but amenable to endovascular repair. Conclusion: 1. successful aortogram. Pending cardiac clearance patient will be scheduled for 6 endovascular aortic aneurysm repair. This note is constructed using voice recognition software. While every effort has been made to ensure accuracy, assembler erector errors may have been included. Thank you for allowing me to participate in the care of your patient. Yours sincerely, Boy King MD, FACS, R.P.V.I.
[2020-06-17] MEDS: Lidocaine HCl 1 % MPF 5 ML VIAL 10 ML SUBCUT (13:25)
[2020-06-17] MEDS: iohexoL 300 MG/ML 100 ML INFUS..BTL 150 ML IV (13:25)
== END 2020-06-17 17:05 | disposition home or self-care (01) ==
PROVIDERS: Visit Provider Surgery Vascular Surgery
DX: I73.9 Peripheral vascular disease, unspecified (principal); I71.4 Abdominal aortic aneurysm, without rupture; I11.9 Hypertensive heart disease without heart failure; G25.0 Essential tremor; J44.9 Chronic obstructive pulmonary disease, unspecified
CPT/HCPCS: 36245; 36415; 75625; 76937; 76942; 80048; 85025; 85610; 85730; C1769; C1887; J0461; J2250; J3010; Q9967